=== PATIENT | female | born 1995 | race Caucasian/White ===

== ENCOUNTER 2019-06-15 15:35 | Outpatient (REF) | payer MEDICAID, SELFPAY ==
--- NOTE | 2019-06-15 13:30 | PAPFT_PTH ---
PATIENT: MAILE HARDING LOC: [facility] U#:[id number] AGE/SX: 23/F ROOM: RE06/15/[address]: Ciera Victor CNM : 1995 BED: DIS: 06/15/2019 SPEC #: [id number] RECD: 06/15/19 16:57 STATUS: DEE DEE BURNETT #: [id number] LEI: 06/15/19 13:[address]: Ciera Victor DEPT: [facility] Cytology RECD BY: Saira Silva ENTERED: 06/15/19 16:58 SP TYPE: PAPFT OTHR DR: Bessy Anderson Tissues: 1 - CX/ENDOCX FOR PAP SMEARS Procedures: PAP THIN PREP/[facility] Screening Comments: [id number]
[2019-06-15 17:01] LABS: *AMPHETAMINES SCREEN URINE Negative (Negative); *BARBITURATES SCREEN URINE Negative (Negative); *BENZODIAZEPINES SCREEN URINE Negative (Negative); Cannabinoids THC Negative (Negative); Cocaine Screen,Urine Negative (Negative); METHADONE URINE SCREEN Negative (Negative); OPIATES URINE SCREEN Negative (Negative)
[2019-06-15 17:03] LABS: Tricyclic Antidepressants Negative (Negative)
[2019-06-17 15:28] LABS: Chlamydia Result Negative (Negative); GC Result Negative (Negative); Specimen Description ENDOCERVICAL
[2019-06-19 12:03] LABS: Buprenorphine Negative; Norbuprenorphine Negative
== END 2019-06-15 15:55 ==
LOC: LBN 15:35
PROVIDERS: PCP Registered Nurse; Visit Provider Advanced Practice Midwife
DX: Z34.91 Encounter for supervision of normal pregnancy, unspecified, first trimester (principal); Z11.3 Encounter for screening for infections with a predominantly sexual mode of transmission; Z12.4 Encounter for screening for malignant neoplasm of cervix
CPT/HCPCS: 80307; 87491; 87591; 88142; 87086; 87480; 87510; 87660

== ENCOUNTER 2019-07-31 02:33 | Outpatient (CLI) | payer MEDICAID, SELFPAY ==
--- NOTE | 2019-07-31 09:59 | DI.US_ITS ---
EXAM: US OB 2-3 TRIMESTER CLINICAL HISTORY: routine pnc, -Z34.90 TECHNIQUE: Ultrasound performed using standard protocol. COMPARISON: No exams were available for comparison FINDINGS: Ob ultrasound was performed utilizing 2nd trimester protocol. biometry is consistent with gest ational age of 18 weeks 3 days and EDC of 12/29/2019. Placenta is anterior with no evidence of place nta previa. There is a normal quantity of amniotic fluid. cardiac activity observed at a rate of 152 BPM. anomaly screen is within normal limits as per the attached checklist. Length of the cervix is estimated at 5.4 cm.
[2019-07-31 10:01] LABS: Abs Immature Grans 0.01 k/cumm (0.0-0.09); Absolute Basophil Count 0.02 k/cumm (0.0-0.2); Absolute Eosinophil Count 0.07 k/cumm (0.0-0.7); Absolute Lymphocyte Count 1.49 k/cumm (1.2-3.4); Absolute Neutrophil Count 5.59 k/cumm (1.2-6.7); Basophils % 0.3; Eosinophils % 0.9; HCT 36.3 % (36.0-46.0); HGB 12.4 g/dL (12.0-15.5); Immature Grans % 0.1; Lymphocytes % 18.7; Mean Corp. HGB Concentration 34.2 g/dL (32.0-36.0); Mean Corpuscular Hemoglobin 29.5 pg (27.0-33.0); Mean Corpuscular Volume 86.4 fL (80-95); Mean Platelet Volume 10.1 fL (8.0-11.0); Platelet Count 272 x1000/uL (130-400); RBC Distribution Width 13.3 % (11.7-14.6); White Blood Cell Count 7.98 k/cumm (4.4-10.8)
[2019-07-31 10:13] LABS: Glucose,1 Hr (Glucola) 70 mg/dL (80-140)
[2019-07-31 10:46] LABS: TSH (W/Ref FT4) 2.33 uIU/mL (0.36-3.74)
[2019-08-01 11:36] LABS: Syphilis Total Ab w/Reflex Nonreactive (Nonreactive)
[2019-08-03 11:33] LABS: Hepatitis C Ab w Rflx HCV PCR Negative (Negative)
[2019-08-03 11:57] LABS: Hepatitis B Surface Ag Negative (Negative)
[2019-08-03 12:02] LABS: Rubella IgG Ab (UVM) Negative (See Note); Varicella IgG Antibody Positive (See Note)
[2019-08-03 12:53] LABS: HIV-1/2 Ag & Ab Screen Negative (Negative)
== END 2019-07-31 02:53 ==
PROVIDERS: PCP Registered Nurse; Visit Provider Advanced Practice Midwife
DX: Z34.92 Encounter for supervision of normal pregnancy, unspecified, second trimester (principal); Z3A.18 18 weeks gestation of pregnancy
CPT/HCPCS: 36415; 82950; 86787; 86803; 86850; 86900; 86901; 87340; 87389; 76805; 84443; 85025; 86762; 86780

== ENCOUNTER 2019-10-08 13:00 | Outpatient (CLI) | payer MEDICAID, SELFPAY ==
[2019-10-08 15:23] LABS: HCT 33.9 % (36.0-46.0); HGB 11.6 g/dL (12.0-15.5); Mean Corp. HGB Concentration 34.2 g/dL (32.0-36.0); Mean Corpuscular Hemoglobin 29.9 pg (27.0-33.0); Mean Corpuscular Volume 87.4 fL (80-95); Mean Platelet Volume 9.4 fL (8.0-11.0); Platelet Count 287 x1000/uL (130-400); RBC 3.88 m/cumm (4.00-5.20); RBC Distribution Width 12.7 % (11.7-14.6); White Blood Cell Count 10.26 k/cumm (4.4-10.8)
[2019-10-08 15:40] LABS: Glucose,1 Hr (Glucola) 127 mg/dL (80-140)
== END 2019-10-08 13:20 ==
PROVIDERS: PCP Registered Nurse; Visit Provider Advanced Practice Midwife
DX: Z34.93 Encounter for supervision of normal pregnancy, unspecified, third trimester (principal)
CPT/HCPCS: 36415; 82950; 85027; 86850; 90384

== ENCOUNTER 2019-11-05 15:50 | Outpatient (CLI) | payer MEDICAID, SELFPAY ==
[2019-11-05 16:43] LABS: HCT 35.5 % (36.0-46.0); Mean Corp. HGB Concentration 33.8 g/dL (32.0-36.0); Mean Corpuscular Hemoglobin 29.3 pg (27.0-33.0); Mean Corpuscular Volume 86.8 fL (80-95); Mean Platelet Volume 9.6 fL (8.0-11.0); Platelet Count 291 x1000/uL (130-400); RBC 4.09 m/cumm (4.00-5.20); RBC Distribution Width 13.3 % (11.7-14.6); White Blood Cell Count 11.38 k/cumm (4.4-10.8)
[2019-11-05 17:09] LABS: PROTEIN 7.8 mg/dL
[2019-11-05 18:36] LABS: ALT 16 U/L (14-59); AST 15 U/L (15-37); Albumin 2.9 g/dL (3.4-5.0); Alkaline Phosphatase 93 U/L (46-116); Anion Gap 10.5 mmol/L (3-11); BUN 15 mg/dL (7-18); Bilirubin, Total 0.2 mg/dL (0.2-1.0); CO2 25.5 mmol/L (21.0-32.0); CREATININE 0.71 mg/dL (0.55-1.02); Chloride 103 mmol/L (98-107); Glucose 69 mg/dL (74-106); Sodium 139 mmol/L (136-145); Total Protein 6.7 g/dL (6.4-8.2); Uric Acid 3.8 mg/dL (2.6-6.0)
[2019-11-05 18:40] LABS: COMMENT (LAB VIEW ONLY) 50.17 mg/dL; Prot/Crea Ur Ratio 0.15
== END 2019-11-05 16:10 ==
PROVIDERS: PCP Registered Nurse; Visit Provider Advanced Practice Midwife
DX: O14.03 Mild to moderate pre-eclampsia, third trimester (principal)
CPT/HCPCS: 80053; 85027; 82565; 84156; 84550

== ENCOUNTER 2019-12-03 16:57 | Outpatient (REF) | payer MEDICAID, SELFPAY ==
[2019-12-03 19:50] LABS: *AMPHETAMINES SCREEN URINE Negative (Negative); *BARBITURATES SCREEN URINE Negative (Negative); *BENZODIAZEPINES SCREEN URINE Negative (Negative); Cannabinoids THC Negative (Negative); Cocaine Screen,Urine Negative (Negative); METHADONE URINE SCREEN Negative (Negative); OPIATES URINE SCREEN Negative (Negative)
[2019-12-03 19:57] LABS: Tricyclic Antidepressants Negative (Negative)
[2019-12-08 07:04] LABS: Buprenorphine Negative; Norbuprenorphine Negative
== END 2019-12-03 17:17 ==
LOC: LBN 16:57
PROVIDERS: PCP Registered Nurse; Visit Provider Advanced Practice Midwife
DX: Z34.93 Encounter for supervision of normal pregnancy, unspecified, third trimester (principal)
CPT/HCPCS: 80307

== ENCOUNTER 2019-12-10 16:16 | Outpatient (REF) | payer MEDICAID, SELFPAY ==
[2019-12-10 17:47] LABS: HCT 34.6 % (36.0-46.0); HGB 11.7 g/dL (12.0-15.5); Mean Corp. HGB Concentration 33.8 g/dL (32.0-36.0); Mean Corpuscular Hemoglobin 29.1 pg (27.0-33.0); Mean Corpuscular Volume 86.1 fL (80-95); Mean Platelet Volume 10.1 fL (8.0-11.0); Platelet Count 286 x1000/uL (130-400); RBC 4.02 m/cumm (4.00-5.20); RBC Distribution Width 13.2 % (11.7-14.6); White Blood Cell Count 8.55 k/cumm (4.4-10.8)
[2019-12-10 17:50] LABS: ALT 16 U/L (14-59); AST 15 U/L (15-37); Albumin 2.6 g/dL (3.4-5.0); Alkaline Phosphatase 115 U/L (46-116); Anion Gap 7.9 mmol/L (3-11); BUN 9 mg/dL (7-18); Bilirubin, Total 0.3 mg/dL (0.2-1.0); CO2 24.1 mmol/L (21.0-32.0); CREATININE 0.65 mg/dL (0.55-1.02); Calcium 8.5 mg/dL (8.5-10.1); Chloride 104 mmol/L (98-107); Glucose 65 mg/dL (74-106); Sodium 136 mmol/L (136-145); Total Protein 6.3 g/dL (6.4-8.2)
[2019-12-10 17:51] LABS: PROTEIN 9.5 mg/dL
[2019-12-10 19:37] LABS: COMMENT (LAB VIEW ONLY) 37.52 mg/dL; Prot/Crea Ur Ratio 0.25
== END 2019-12-10 16:36 ==
LOC: LBN 16:16
PROVIDERS: PCP Registered Nurse; Visit Provider Advanced Practice Midwife
DX: O14.03 Mild to moderate pre-eclampsia, third trimester (principal); Z36.85 Encounter for antenatal screening for Streptococcus B
CPT/HCPCS: 80053; 85027; 82565; 84156; 84550; 87081

== ENCOUNTER 2019-12-24 08:29 | Outpatient (CLI) | payer MEDICAID, SELFPAY | END 2019-12-24 08:49 | PROVIDERS: PCP Registered Nurse; Visit Provider Advanced Practice Midwife | DX: O36.8130 Decreased fetal movements, third trimester, not applicable or unspecified (principal); O26.893 Other specified pregnancy related conditions, third trimester | CPT/HCPCS: 59025 ==

== ENCOUNTER 2019-12-25 09:40 | Outpatient (CLI) | payer MEDICAID, SELFPAY ==
--- NOTE | 2019-12-25 13:30 | DI.US_ITS ---
EXAM: US OB SAÚL WEIGHT CLINICAL HISTORY: S>D,[id number] TECHNIQUE: Ultrasound performed using standard protocol. COMPARISON: US US OB 2-3 TRIMESTER from 07/31/2019 FINDINGS: Ob ultrasound was performed utilizing 3rd trimester protocol. biometry is consistent with gest ational age of 39 weeks 4 days and EDC of 12/28/2019. The estimated weight is 3887 grams which is at the 85th percentile for predicted gestational age. Placenta is anterior and fundal, no placenta previa. There is visually a normal quantity of amniotic fluid and the SAÚL is 8. heart rate was 139 BPM. Fetus is in cephalic presentation. IMPRESSION: DATA REPOSITORY:
== END 2019-12-25 10:00 ==
PROVIDERS: PCP Registered Nurse; Visit Provider Advanced Practice Midwife
DX: O26.843 Uterine size-date discrepancy, third trimester (principal); Z3A.39 39 weeks gestation of pregnancy
CPT/HCPCS: 76816

== ENCOUNTER 2019-12-28 03:26 | Observation (INO) | payer MEDICAID, SELFPAY ==
[2019-12-28 06:46] LABS: ROM Plus Negative
== END 2019-12-28 07:20 | disposition home or self-care (01) ==
LOC: OBS 04:08
PROVIDERS: Admitting Provider Advanced Practice Midwife; PCP Registered Nurse; Visit Provider Advanced Practice Midwife
DX: O47.1 False labor at or after 37 completed weeks of gestation (principal); Z3A.39 39 weeks gestation of pregnancy; O09.213 Supervision of pregnancy with history of pre-term labor, third trimester; Z86.79 Personal history of other diseases of the circulatory system; Z79.82 Long term (current) use of aspirin
CPT/HCPCS: 84112; G0378

== ENCOUNTER 2019-12-30 18:52 | Outpatient (REF) | payer MEDICAID, SELFPAY ==
[2019-12-30 16:49] LABS: ROM Plus Negative
== END 2019-12-30 19:12 ==
LOC: LBN 18:52
PROVIDERS: PCP Registered Nurse; Visit Provider Advanced Practice Midwife
DX: Z34.93 Encounter for supervision of normal pregnancy, unspecified, third trimester (principal); Z3A.40 40 weeks gestation of pregnancy
CPT/HCPCS: 84112; 87480; 87510; 87660

== ENCOUNTER 2020-01-08 05:27 | Inpatient (IN) | payer MEDICAID, SELFPAY ==
[2020-01-08 07:01] LABS: ROM Plus Positive
[2020-01-08] MEDS: AZITHROMYCIN 500 MG in Normal Saline 250 ML 250 MG IVPB (07:01)
[2020-01-08] MEDS: FentaNYL/ROPIvacaine 2 mcg/ml and 0.1% 200 ML CADD Cassette EP (07:30)
[2020-01-08] MEDS: Oxytocin 10 UNITS/ML VIAL IM (08:42)
[2020-01-08] MEDS: Ibuprofen 600 MG TAB PO ×3 (09:14→19:58)
[2020-01-08] MEDS: Acetaminophen 325 MG TAB 650 MG PO ×3 (11:14→19:58)
[2020-01-08] MEDS: oxyCODONE 5 MG TAB PO (13:06)
[2020-01-08 22:24] LABS: COVID-19 RT-PCR UVMMC Result Negative (Negative)
[2020-01-09] MEDS: Acetaminophen 325 MG TAB 650 MG PO ×2 (00:15→08:25)
[2020-01-09] MEDS: oxyCODONE 5 MG TAB PO (03:08)
[2020-01-09 08:19] LABS: HCT 33.3 % (36.0-46.0); HGB 10.9 g/dL (12.0-15.5); Mean Corp. HGB Concentration 32.7 g/dL (32.0-36.0); Mean Corpuscular Hemoglobin 28.7 pg (27.0-33.0); Mean Corpuscular Volume 87.6 fL (80-95); Platelet Count 237 x1000/uL (130-400); RBC Distribution Width 13.5 % (11.7-14.6); White Blood Cell Count 10.31 k/cumm (4.4-10.8)
[2020-01-09] MEDS: Ibuprofen 600 MG TAB PO (08:26)
[2020-01-09] MEDS: Hamamelis Leaf/Glycerin 100 EACH BOX PR (10:00)
[2020-01-11 15:47] LABS: Chlamydia Result Negative (Negative); GC Result Negative (Negative)
== END 2020-01-09 15:50 | disposition home or self-care (01) | DRG 807 ==
PROVIDERS: Advanced Practice Midwife; Admitting Provider Advanced Practice Midwife; PCP Registered Nurse; Visit Provider Advanced Practice Midwife
DX: O48.0 Post-term pregnancy (principal); Z37.0 Single live birth; Z3A.41 41 weeks gestation of pregnancy; Z87.51 Personal history of pre-term labor; Z82.49 Family history of ischemic heart disease and other diseases of the circulatory system; Z67.41 Type O blood, Rh negative
CPT/HCPCS: 36415; 84112; 85027; 85461; 86850; 86900; 86901; 87491; 87591; 90384; U0003; J0456; J1050; J2590; J2790; J3490